=== PATIENT | male | born 1960 | race Caucasian/White ===

== ENCOUNTER 2022-04-26 16:10 | Emergency (ER) | payer BC ==
[2022-04-26] MEDS ORDERED: Sodium Chloride 0.9% 1,000 ML IV ONE (16:18)
[2022-04-26] MEDS ORDERED: Ketorolac 30 MG/ML SDV IVPUSH ONE (16:18)
[2022-04-26 17:17] LABS: CARBON DIOXIDE,CO2 28.9 mmol/L (21.0-32.0); POTASSIUM,K 3.5 mmol/L (3.5-5.1)
== END 2022-04-26 17:55 | disposition home or self-care (01) ==
LOC: MW.ED 16:10
DX: U07.1 COVID-19 (principal); E03.9 Hypothyroidism, unspecified; Z79.899 Other long term (current) drug therapy
CPT/HCPCS: 36415; 71045; 80053; 84484; 85025; 96361; 96374; 99285; J1885; J7030

== ENCOUNTER 2023-03-13 12:32 | Emergency (ER) | payer SELFPAY | END 2023-03-13 13:43 | disposition left against medical advice (07) | LOC: MW.ED 12:32 | DX: Z53.21 Procedure and treatment not carried out due to patient leaving prior to being seen by health care provider (principal) ==